=== PATIENT | female | born 1960 | race Asian ===

== ENCOUNTER 2021-04-20 11:00 | Outpatient (CLI) | payer BC | END 2021-04-20 20:43 | disposition home or self-care (01) | LOC: SMA 11:00 | DX: Z12.31 Encounter for screening mammogram for malignant neoplasm of breast (principal) | CPT/HCPCS: 77067 ==

== ENCOUNTER 2023-11-03 11:39 | Outpatient (CLI) | payer BC | END 2023-11-03 19:51 | disposition home or self-care (01) | LOC: SMA 11:39 | PROVIDERS: ATTEND Family Medicine | DX: Z12.31 Encounter for screening mammogram for malignant neoplasm of breast (principal) | CPT/HCPCS: 77067 ==